=== PATIENT | female | born 1950 | race Caucasian/White ===

== ENCOUNTER → 2016-07-18 | Outpatient (CLI) | payer OTHER | END | disposition home or self-care (01) | DX: R26.2 Difficulty in walking, not elsewhere classified (principal); M17.11 Unilateral primary osteoarthritis, right knee; M25.561 Pain in right knee; M25.661 Stiffness of right knee, not elsewhere classified; M62.81 Muscle weakness (generalized) | CPT/HCPCS: 97110 GP; 97150 GO; 97161 GP; 97165 GO; G8978 GP; G8979 GP; G8980 GP; G8987 GO; G8988 GO; G8989 GO ==

== ENCOUNTER 2016-08-01 05:30 | Inpatient (IN) | payer OTHER ==
[~2016-08-01] VITALS: Ht 154.9 cm; Wt 95.8 kg
[~2016-08-01 05:30] MED LIST: ACTOPLUS MET1 TABLE1 PO; AVAPRO150 MG PO; CELEBREX200 MG PO; GLIPIZIDE5 MG PO; HYDROCHLOROTHIA25 MG PO; LIPITOR40 MG PO; TRAMADOL HCL50 MG PO
[2016-08-01 06:07] LABS: POINT-OF-CARE METER ID UU13113694
[2016-08-01 06:30] VITALS: BP 146/67
[2016-08-01 09:27] LABS: POINT-OF-CARE METER ID UU13113675
[2016-08-01 09:51] LABS: HEMATOCRIT 29.8 % (36.0-46.0); MCH 27.2 PG (29.0-34.0); MCHC 31.5 G/DL (30.0-36.0); MCV 86.4 FL (83-99); MEAN PLAT.VOLUME 11.4 uM^3 (9.5-12.4); PLATELET COUNT 185 K/uL (156-360); RBC DIS.WIDTH-CV 14.6 % (11.8-14.6); RBC DIS.WIDTH-SD 46.3 % (39-53); RED BLOOD COUNT 3.45 M/uL (3.80-5.20); WHITE BLOOD COUNT 9.8 K/uL (4.1-10.2)
[2016-08-01 10:57] VITALS: BP 154/70
[2016-08-01 16:45] VITALS: BP 130/62
[2016-08-01 16:51] LABS: POINT-OF-CARE METER ID UU13113712
[2016-08-01 20:15] VITALS: BP 126/60
[2016-08-01 22:10] LABS: POINT-OF-CARE METER ID UU13113712
[2016-08-02] VITALS: BP 138/65
[2016-08-02 04:15] VITALS: BP 137/61
[2016-08-02 06:52] LABS: HEMATOCRIT 26.9 % (36.0-46.0); MCV 86.2 FL (83-99)
[2016-08-02 07:15] LABS: ANION GAP 9 MEQ/L (2-14); CHLORIDE 106 MEQ/L (99-109); GFR ESTIMATE (CALCULATED) > 59 mL/min/; GLUCOSE 101 mg/dL (70-99); POTASSIUM 4.1 MEQ/L (3.7-5.4); SAMPLE HEMOLYSIS CHECK 0; SAMPLE ICTERIC CHECK 0; SAMPLE LIPEMIA CHECK 0; SODIUM 138 MEQ/L (136-147); UREA NITROGEN (BUN) 23 mg/dL (9-23)
[2016-08-02 08:00] VITALS: BP 122/58
[2016-08-02 12:00] VITALS: BP 115/54
[2016-08-02 12:06] LABS: POINT-OF-CARE METER ID UU13113712
[2016-08-02 15:47] VITALS: BP 116/58
[2016-08-02 16:21] LABS: POINT-OF-CARE METER ID UU13113712
[2016-08-02 20:04] VITALS: BP 128/60
[2016-08-02 21:53] LABS: POINT-OF-CARE METER ID UU13113712
[2016-08-03 00:20] VITALS: BP 130/60
[2016-08-03 04:28] VITALS: BP 136/65
[2016-08-03 06:09] LABS: HEMATOCRIT 26.6 % (36.0-46.0); MCV 85.3 FL (83-99)
[2016-08-03 07:43] LABS: POINT-OF-CARE METER ID UU13113712
[2016-08-03 08:06] VITALS: BP 152/63
[2016-08-03 11:29] LABS: POINT-OF-CARE METER ID UU13113712
[2016-08-03 12:05] VITALS: BP 158/66
[2016-08-03 15:08] VITALS: BP 141/65
[2016-08-03 22:20] LABS: POINT-OF-CARE METER ID UU14188577
[2016-08-04 00:04] VITALS: BP 150/68
[2016-08-04 07:40] VITALS: BP 153/68
[2016-08-04] MEDS ORDERED: SENNA PLUS TAB1 EACH PO (08:05)
[2016-08-04] MEDS ORDERED: LOVENOX40 MG/0.4 SC (08:06)
[2016-08-04] MEDS ORDERED: HYDROCODON-ACE1 EAC7 PO (08:06)
== END 2016-08-04 15:16 | DRG 470 ==
LOC: 2SOUTH 05:30 → 3WEST 05:30 → 2SOUTH 11:05 → 3WEST 08-03 06:46 → 3EAST 08-03 14:48
PROVIDERS: Orthopaedic Surgery
PROC: 0SRC0JZ Replacement of Right Knee Joint with Synthetic Substitute, Open Approach (ICD-10-PCS; principal; 2016-08-01)
DX: M17.11 Unilateral primary osteoarthritis, right knee (principal); E78.00 Pure hypercholesterolemia, unspecified; I10 Essential (primary) hypertension; E11.9 Type 2 diabetes mellitus without complications; Z83.3 Family history of diabetes mellitus; Z82.49 Family history of ischemic heart disease and other diseases of the circulatory system; Z79.84 Long term (current) use of oral hypoglycemic drugs
CPT/HCPCS: 71010; 73560; 80048; 82948; 85014; 85018; 85027; C1713; J0131; J0330; J0690; J1100; J1170; J1650; J1815; J1885; J2250; J2405; J2550; J2765; J3010; J7050

== ENCOUNTER 2017-07-22 20:48 | Inpatient (IN) | payer OTHER ==
[~2017-07-22] VITALS: Ht 154.9 cm; Wt 95.0 kg
[~2017-07-22 20:48] MED LIST changes: +ALDACTAZIDE 251 EACH PO; +COZAAR100 MG PO; +FEOSOL325 MG PO; +GLUCOPHAGE850 MG PO; +HYDROCODON-ACE1 EAC7 PO; +IRON18 MG PO; +LEXAPRO5 MG PO; +LOVENOX40 MG/0.4 SC; +PRILOSEC OTC20 MG PO; +SENNA PLUS TAB1 EACH PO; +VITAMIN B-12250 MCG PO
[2017-07-23 06:45] VITALS: BP 158/70
[2017-07-23 10:24] LABS: HEMOGLOBIN 9.3 G/DL (11.9-15.5); MCH 27.8 PG (29.0-34.0); MCV 89.8 FL (83-99); PLATELET COUNT 191 K/uL (156-360); RBC DIS.WIDTH-SD 59.1 % (39-53); RED BLOOD COUNT 3.34 M/uL (3.80-5.20); WHITE BLOOD COUNT 9.6 K/uL (4.1-10.2)
[2017-07-23 11:11] VITALS: BP 162/74
[2017-07-23 18:17] VITALS: BP 147/68
[2017-07-24 00:30] VITALS: BP 114/56
[2017-07-24 05:08] VITALS: BP 139/63
[2017-07-24 06:21] LABS: HEMATOCRIT 30.2 % (36.0-46.0); MCV 90.1 FL (83-99)
[2017-07-24 06:52] LABS: CHLORIDE 111 MEQ/L (99-109); CREATININE 1.1 MG/DL (0.6-1.3); GFR ESTIMATE (CALCULATED) 52 mL/min/; GLUCOSE 118 mg/dL (70-99); SODIUM 138 MEQ/L (136-147); UREA NITROGEN (BUN) 23 mg/dL (9-23)
[2017-07-24 07:55] VITALS: BP 147/65
[2017-07-24 12:01] VITALS: BP 163/68
[2017-07-24 16:27] VITALS: BP 142/65
[2017-07-24 23:50] VITALS: BP 146/65
[2017-07-25 06:18] LABS: HEMATOCRIT 28.1 % (36.0-46.0); HEMOGLOBIN 8.9 G/DL (11.9-15.5); MCV 88.6 FL (83-99)
[2017-07-25 08:07] VITALS: BP 154/54
[2017-07-25 15:32] VITALS: BP 148/68
[2017-07-26 00:16] VITALS: BP 150/67
[2017-07-26] MEDS ORDERED: SENNA PLUS TAB1 EACH PO (08:12)
[2017-07-26] MEDS ORDERED: ENDOCET 5-3251 EACH PO (08:13)
[2017-07-26] MEDS ORDERED: LOVENOX40 MG/0.4 SC (08:13)
[2017-07-26 08:43] VITALS: BP 140/63
== END 2017-07-26 13:21 | DRG 470 ==
LOC: ENRESERV 20:48 → 3EAST 07-23 05:57 → 2SOUTH 07-23 05:57 → ENRESERV 07-23 08:38 → 2SOUTH 07-23 10:11 → 3EAST 07-23 10:43 → 2SOUTH 07-23 15:30 → 3EAST 07-26 13:21 → 2SOUTH 07-23 10:11
PROVIDERS: Orthopaedic Surgery
PROC: 0SRD0J9 Replacement of Left Knee Joint with Synthetic Substitute, Cemented, Open Approach (ICD-10-PCS; principal; 2017-07-23)
DX: M17.12 Unilateral primary osteoarthritis, left knee (principal); E78.00 Pure hypercholesterolemia, unspecified; I10 Essential (primary) hypertension; E11.9 Type 2 diabetes mellitus without complications; Z82.49 Family history of ischemic heart disease and other diseases of the circulatory system; Z96.651 Presence of right artificial knee joint; Z87.11 Personal history of peptic ulcer disease; Z90.710 Acquired absence of both cervix and uterus; E66.01 Morbid (severe) obesity due to excess calories; Z68.41 Body mass index [BMI] 40.0-44.9, adult; K25.9 Gastric ulcer, unspecified as acute or chronic, without hemorrhage or perforation; Z79.84 Long term (current) use of oral hypoglycemic drugs
CPT/HCPCS: 71045; 73560; 80048; 82948; 84132; 85014; 85018; 85027; 87641; 93005; A6214; C1713; J0330; J0690; J1170; J1650; J2250; J2405; J2795; J3010; J7030; J7050; Q0175; S0020